=== PATIENT | female | born 1970 | race Caucasian/White ===

== ENCOUNTER 2019-11-24 05:49 | Day surgery (SDC) | payer BC, SELFPAY ==
[2019-11-23 07:22] VITALS: BMI 25.9
[2019-11-23 08:51] VITALS: BMI 26.0
[2019-11-24] MEDS: sodium chloride 0.9% 1,000 ML 30 ML IV (06:18)
--- NOTE | 2019-11-24 06:47 | ANES.PREANE2 ---
Pre-Anesthetic Assessment Pre-Anesthetic Assessment: Height/Weight: Height 1.55 m Weight 62.596 kg Preop Diagnosis: Family history of colon cancer Proposed Procedure: Operation Date: 11/24/19 07:35 Proposed Procedures p Colonoscopy 62361 Z80.0(Not Applicable) - Nino Gramajo MD Last intake: Intake Last Liquid Date 11/23/19 Last Liquid Time 10:45 Last Solid Date 11/22/19 Last Solid Time 11:00 Social: Social History: Tobacco and No alcohol Exam: Pre-Anes Outpt Exam: alert, oriented x 3, clear to auscultation bilaterally and regular rate & rhythm Airway: Submandibular: WNL Cervical ROM: WNL MP: 2 History/ROS: No significant history except as noted Metabolic: Metabolic: DM Anesthetic Plan: ASA status: 3 Anesthesia: Anesthesia Evaluation and MAC Risk of > 500 ml blood loss (7ml/kg in children): No Meds/Allergies Current Medications: Current Medications Generic Name Dose Route Start Last Admin Trade Name Freq PRN Reason Stop Dose Admin Sodium Chloride 1,000 mls @ 30 ml s/hr 11/24/19 06:00 11/24/19 06:18 Sodium Chloride 0.9% IV 30 mls/hr .Q24H ROBYN Administration PFSH Anesthesia PFSH: Social History Smoking and tobacco status: current every day smoker Alcohol intake: current Alcohol intake frequency: holidays/special occasions only History of recent travel: No Data Anesthesia Cardiac Studies: No Data to Display
--- NOTE | 2019-11-24 07:01 | W.PM.OPSFHP ---
Same Day Surgery H&P Indication for Procedure/HPI DATE OF PROCEDURE: November 24, 2019 CHIEF COMPLAINT/INDICATIONFOR SURGICAL PROCEDURE: Family history of colon cancer PREOP DIAGNOSIS: Family history of colon cancer PLANNED PROCEDRUE: Operation Date: 11/24/19 07:35 Proposed Procedures p Colonoscopy 27997 Z80.0(Not Applicable) - Nino Gramajo MD Medications/Allergies* Home Medications Medication Instructions Recorded Confirmed Type metformin 500 mg tablet 500 mg PO BID 10/22/19 11/23/19 History Allergies/Adverse Reactions Allergy/AdvReac Type Severity Reaction Status Date / Time codeine Allergy ALGY-Hives Verified 11/23/19 08:49 Current Medications: Generic Name Dose Route Start Last Admin Trade Name Freq PRN Reason Stop Dose Admin Sodium Chloride 1,000 mls @ 30 mls/hr 11/24/19 06:00 11/24/19 06:18 Sodium Chloride 0.9% IV 30 mls/hr .Q24H ROBYN Administration Pertinent History/Comorbid Conditions* Medical History (Updated 10/22/19 @ 11:47 by Nino Gramajo MD) Diabetes Umbilical hernia, incarcerated Surgical History (Updated 10/22/19 @ 11:02 by Nino Gramajo MD) History of cholecystectomy History of foot surgery Bilateral Family History (Updated 10/22/19 @ 10:57 by MARGARET Juárez) Cancer Mother Breast and Colonoscopy Denies family history of Anesthesia complication Bleeding disorder Social History Smoking and tobacco status: current every day smoker Alcohol intake: current Alcohol intake frequency: holidays/special occasions only History of recent travel: No Pertinent Exam Findings alert, oriented x 3 and regular rate & rhythm Recommendations Surgery/Procedure today Coding Level of Care Code Acute Membership Sales Representative for Dina Martinez
[2019-11-24 07:26] VITALS: BP 101/69; PULSE 85; RESP 18; TEMP 36.6; O2SAT 100
--- NOTE | 2019-11-24 07:35 | ANE.PACU2 ---
 Inpatient post-anesthesia follow up: Airway intact: Yes Vital signs: Temperature 97.8 F Pulse Rate 85 Respiratory Rate 18 Blood Pressure 101/69 Pulse Oximetry 100 Oxygen Delivery Me thod Nasal Cannula Oxygen Flow Rate 3 Fraction of Inspir ed Oxygen Hydration adequate: Yes Nausea and vomiting: No Mental status: Baseline
[2019-11-24 07:36] VITALS: BP 92/64; PULSE 91; RESP 18; O2SAT 96
[2019-11-24 07:54] VITALS: BP 128/77; PULSE 86; RESP 18; O2SAT 100
== END 2019-11-24 07:55 | disposition home or self-care (01) ==
PROVIDERS: Family Provider Nurse Practitioner; PCP Nurse Practitioner; Visit Provider Surgery
PROC: 0DJD8ZZ Inspection of Lower Intestinal Tract, Via Natural or Artificial Opening Endoscopic (ICD-10-PCS; CPT 45378; principal; 2019-11-24 07:30)
DX: K64.8 Other hemorrhoids (principal); Z80.0 Family history of malignant neoplasm of digestive organs; E11.9 Type 2 diabetes mellitus without complications; F17.210 Nicotine dependence, cigarettes, uncomplicated
CPT/HCPCS: 12345; 45378; J2001; J2704; J7030

== ENCOUNTER 2019-11-30 05:41 | Day surgery (SDC) | payer BC, SELFPAY ==
[2019-11-27 09:26] VITALS: BMI 26.0
[2019-11-30] VITALS (7 sets, daily range): BP systolic 113–152; BP diastolic 63–99; PULSE 74–95; RESP 16–18; TEMP 36.3–36.6; O2SAT 91–100
[2019-11-30 06:04] LABS: Glucose Point of Care 280 mg/dL (70-110)
[2019-11-30] MEDS: sodium chloride 0.9% 1,000 ML 30 ML IV (06:15)
--- NOTE | 2019-11-30 06:34 | ANES.PREANE2 ---
Pre-Anesthetic Assessment Pre-Anesthetic Assessment: Height/Weight: Height 1.55 m Weight 62.596 kg Temp Pulse Resp BP Pulse Ox 97.8 F 95 16 152/99 100 11/30/19 06:08 11/30/19 06:08 11/30/19 06:08 11/30/19 06:08 11/30/19 06:08 Preop Diagnosis: Family history of colon cancer Proposed Procedure: Operation Date: 11/30/19 07:05 Proposed Procedures p Umbilical Hernia Repair w/ Mesh 55835 K42.0(Not Applicable) - Nino Gramajo MD Familial anesthetic complications: None Was Beta Lesia taken within 24 hours: N/A Last intake: Intake Last Liquid Date 11/29/19 Last Liquid Time 22:30 Last Solid Date 11/29/19 Last Solid Time 18:00 Social: Social History: Tobacco Exam: Pre-Anes Outpt Exam: alert, oriented x 3, clear to auscultation bilaterally and regular rate & rhythm Airway: Cervical ROM: WNL Additional comments: missing Metabolic: Metabolic: DM Anesthetic Plan: ASA status: 2 Anesthesia: General Risk of > 500 ml blood loss (7ml/kg in children): No Meds/Allergies Current Medications: Current Medications Generic Name Dose Route Start Last Admin Trade Name Freq PRN Reason Stop Dose Admin Sodium Chloride 1,000 mls @ 30 ml s/hr 11/30/19 06:00 11/30/19 06:15 Sodium Chloride 0.9% IV 12/01/19 05:59 30 mls/hr .Q24H ROBYN Administration PFSH Anesthesia PFSH: Medical History Diabetes Umbilical hernia, incarcerated Surgical History (Updated 11/24/19 @ 07:26 by Nino Gramajo MD) History of cholecystectomy History of foot surgery Bilateral Status post colonoscopy (11/24/19) Social History Smoking and tobacco status: current every day smoker Alcohol intake: current Alcohol intake frequency: holidays/special occasions only History of recent travel: No Data Anesthesia Other Labs: Laboratory Results - last 48 hr 11/30/19 06:01 POC Glucose 280 Cardiac Studies: No Data to Display
--- NOTE | 2019-11-30 06:55 | W.PM.OPSFHP ---
Same Day Surgery H&P Indication for Procedure/HPI DATE OF PROCEDURE: November 30, 2019 CHIEF COMPLAINT/INDICATIONFOR SURGICAL PROCEDURE: umbilical hernia PREOP DIAGNOSIS: Family history of colon cancer PLANNED PROCEDRUE: Operation Date: 11/30/19 07:05 Proposed Procedures p Umbilical Hernia Repair w/ Mesh 69620 K42.0(Not Applicable) - Nino Gramajo MD Medications/Allergies* Home Medications Medication Instructions Recorded Confirmed Type metformin 500 mg tablet 500 mg PO BID 10/22/19 11/30/19 History Allergies/Adverse Reactions Allergy/AdvReac Type Severity Reaction Status Date / Time codeine Allergy ALGY-Hives Verified 11/30/19 06:06 Current Medications: Generic Name Dose Route Start Last Admin Trade Name Freq PRN Reason Stop Dose Admin Sodium Chloride 1,000 mls @ 30 mls/hr 11/30/19 06:00 11/30/19 06:15 Sodium Chloride 0.9% IV 12/01/19 05:59 30 mls/hr .Q24H ROBYN Administration Pertinent History/Comorbid Conditions* Medical History (Updated 10/22/19 @ 11:47 by Nino Gramajo MD) Diabetes Umbilical hernia, incarcerated Surgical History (Updated 11/24/19 @ 07:26 by Nino Gramajo MD) History of cholecystectomy History of foot surgery Bilateral Status post colonoscopy (11/24/19) Family History (Updated 10/22/19 @ 10:57 by MARGARET Juárez) Cancer Mother Breast and Colonoscopy Denies family history of Anesthesia complication Bleeding disorder Social History Smoking and tobacco status: current every day smoker Alcohol intake: current Alcohol intake frequency: holidays/special occasions only History of recent travel: No Pertinent Exam Findings alert, oriented x 3, regular rate & rhythm and procedure specific exam findings Recommendations Surgery/Procedure today Coding Level of Care Code Acute Commission Auditor for Dina Martinez
[2019-11-30] MEDS: HYDROcodone-acetaminophen 5-325 mg Tablet 1 TAB PO (08:17)
--- NOTE | 2019-11-30 08:23 | PM.OP ---
Operative Report Date of procedure: November 30, 2019 Pre-op Diagnosis: Incarcerated umbilical hernia Post-op Diagnosis: Incarcerated umbilical hernia containing omentum Procedure Done: Open primary repair of umbilical hernia measuring 1.5 cm Pathology: none sent Surgeon: Nino Gramajo Anesthesia: General Estimated blood loss (mL): 5 Condition: stable Disposition: PACU Procedure: The patient was taken to the operating room and intubated under general anesthesia after IV antibiotic had been administered. The abdomen was prepped and draped in a sterile manner. A 2 cm infraumbilical longitudinal incision was made using a 15 blade, a hernial sac dissected out using electrocautery and dissection with hemostats. The hernial sac was opened and omentum was reduced into the peritoneal cavity. Interrupted sutures using 0 Vicryl was used to close the hernial defect without any tension. The subcutaneous tissue was approximated using 3-0 Vicryl and skin was closed using running subcuticular 4-0 Monocryl sutures. Surgical glue was then applied and 20 mL of 0.5% Marcaine was infiltrated around the incision. A 2 x 2 gauze was then placed within the umbilicus and sterile dressings are applied. The patient was stable throughout the procedure.
== END 2019-11-30 08:55 | disposition home or self-care (01) ==
PROVIDERS: Family Provider Nurse Practitioner; PCP Nurse Practitioner; Visit Provider Surgery
PROC: (CPT 49587; principal; 2019-11-30 07:00)
DX: K42.0 Umbilical hernia with obstruction, without gangrene (principal); E11.9 Type 2 diabetes mellitus without complications; F17.210 Nicotine dependence, cigarettes, uncomplicated; Z79.84 Long term (current) use of oral hypoglycemic drugs
CPT/HCPCS: 49587; 12345; 36416; 82962; J0690; J2370; J2405; J2704; J2710; J3010; J3490; J7030

== ENCOUNTER 2024-03-26 09:18 | Outpatient (CLI) | payer OTHER, SELFPAY ==
--- NOTE | 2024-03-26 09:20 | MM_ITS ---
WS: [id number] SCREENING DIGITAL BREAST TOMOSYNTHESIS MAMMOGRAM WITH CAD HISTORY: Z12.39 - Encounter for other screening for malignant neop... COMPARISON: None available. Bilateral CC and MLO with tomosynthesis and synthetic mammography submitted. Computer aided detection analyzed. Breast composition: The breasts are heterogeneously dense, which may obscure small masses. No suspici ous calcification. There is a partially obscured mass in the LEFT subareolar region seen best on the CC projection. Mass is ovoid measuring 2.3 x 1.8 cm. This is near the 6:00 axis. This may contain fat suggesting that it is benign. There are no calcifications. MM/[place] [id number] IMPRESSION: BI-RADS: 0 - Incomplete: Need additional imaging evaluation FOLLOW UP: Need Additional Imaging Recommendation: LEFT breast subareolar evaluation to evaluate for possible mass which may contain fat suggesting that is benign.
== END 2024-03-26 09:19 | disposition home or self-care (01) ==
PROVIDERS: PCP Nurse Practitioner; Visit Provider Nurse Practitioner
DX: Z12.31 Encounter for screening mammogram for malignant neoplasm of breast (principal); R92.333 Mammographic heterogeneous density, bilateral breasts; N63.42 Unspecified lump in left breast, subareolar
CPT/HCPCS: 77063; 77067

== ENCOUNTER 2024-05-05 10:47 | Outpatient (CLI) | payer OTHER, SELFPAY ==
--- NOTE | 2024-05-05 10:52 | MM_ITS ---
WS: [id number] ADDITIONAL VIEWS LEFT MAMMOGRAM with tomosynthesis. LEFT BREAST ULTRASOUND HISTORY: ABNORMAL MAMMOGRAM COMPARISON: 03/26/2024 LEFT MAMMOGRAM: Spot compression views and true ML with tomosynthesis and sympathetic mammography. Partially obscured mass measuring 2.3 x 1.8 x 1.9 cm posterior to the LEFT nipple toward 6:00. Margin s are incompletely visualized due to dense fibroglandular tissue. No calcifications. No nipple retrac tion. LEFT BREAST ULTRASOUND 2-D and color Doppler imaging submitted. Oval mass with indistinct margins and mixed heterogeneous echogenicity is noted in the subareolar reg ion of the LEFT breast towards 6:00. Mass is similar to the adjacent breast tissue and is at least pa rtially encapsulated. Mass measures 2.0 x 2.6 x 1.5 cm. There does appear to be fat noted on both ult rasound and mammography. There are a few scattered cystic areas. MM/MM diag LT tomosynthesis [id number] IMPRESSION: BI-RADS: 3- Probably Benign FOLLOW UP: 6 Month Follow-up Recommend 6-month ultrasound follow-up only of the LEFT breast mass. Favor this is a benign hamartoma which does not need to be biopsied. As this mass has not been previously described are imaged short-term follow-up is recommended to en sure there is no enlargement.
== END 2024-05-05 10:48 | disposition home or self-care (01) ==
LOC: RAD 10:48
PROVIDERS: PCP Nurse Practitioner; Visit Provider Nurse Practitioner
DX: R92.8 Other abnormal and inconclusive findings on diagnostic imaging of breast (principal); N63.24 Unspecified lump in the left breast, lower inner quadrant
CPT/HCPCS: 76642; 77061; G0279

== ENCOUNTER → 2024-05-11 14:22 | Outpatient (BNVA) | payer OTHER, SELFPAY | PROVIDERS: PCP Nurse Practitioner; Visit Provider Nurse Practitioner | DX: E11.9 Type 2 diabetes mellitus without complications (principal) | CPT/HCPCS: 83036 ==

== ENCOUNTER → 2024-08-11 15:03 | Outpatient (BNVA) | payer OTHER, SELFPAY | PROVIDERS: PCP Nurse Practitioner; Visit Provider Nurse Practitioner | DX: E11.9 Type 2 diabetes mellitus without complications (principal) | CPT/HCPCS: 83036 ==

== ENCOUNTER 2024-11-03 06:55 | Outpatient (CLI) | payer OTHER, SELFPAY ==
--- NOTE | 2024-11-03 07:45 | US_ITS ---
WS: [id number] ULTRASOUND LEFT BREAST HISTORY: 6-month follow-up LEFT breast mass. COMPARISON: 05/05/2024 and 03/26/2024 TECHNIQUE: 2-D and Doppler. Reidentified is the fat-containing LEFT breast retroareolar mass which is encapsulated measuring 2.0 x 2.1 x 1.1 cm. No increased vascularity. No shadowing. This is most consistent with a benign hamartoma. US/US breast LT limited* [id number] IMPRESSION: BI-RADS: 3- Probably Benign FOLLOW-UP: 6 Month Follow-up Recommend 6-month diagnostic mammogram follow-up and possible ultrasound. That will be the time of bilateral screening mammography.
== END 2024-11-03 06:56 | disposition home or self-care (01) ==
PROVIDERS: PCP Nurse Practitioner; Visit Provider Nurse Practitioner
DX: R92.8 Other abnormal and inconclusive findings on diagnostic imaging of breast (principal); N63.20 Unspecified lump in the left breast, unspecified quadrant
CPT/HCPCS: 76642

== ENCOUNTER → 2024-11-18 14:26 | Outpatient (BNVA) | payer OTHER, SELFPAY | PROVIDERS: PCP Nurse Practitioner; Visit Provider Nurse Practitioner | DX: E11.9 Type 2 diabetes mellitus without complications (principal); I10 Essential (primary) hypertension; E78.5 Hyperlipidemia, unspecified | CPT/HCPCS: 80053; 80061; 83036 ==

== ENCOUNTER → 2025-02-02 13:50 | Outpatient (BNVA) | payer OTHER, SELFPAY | PROVIDERS: PCP Nurse Practitioner; Visit Provider Nurse Practitioner | DX: E11.9 Type 2 diabetes mellitus without complications (principal) | CPT/HCPCS: 80053; 80061; 83036; 85025 ==

== ENCOUNTER 2025-05-04 12:56 | Outpatient (CLI) | payer OTHER, SELFPAY ==
--- NOTE | 2025-05-04 13:03 | MM_ITS ---
WS: [id number] DIAGNOSTIC BILATERAL DIGITAL BREAST TOMOSYNTHESIS MAMMOGRAPHY WITH CAD LEFT breast ultrasound, limited HISTORY: Follow-up retroareolar LEFT breast mass. COMPARISON: 05/05/2024, 03/26/2024 TECHNIQUE: Bilateral craniocaudad, mediolateral oblique, and mediolateral views are submitted with tomosynthesis and SM. Spot compression LEFT CC. Computer aided detection utilized. Breast composition: There are scattered areas of fibroglandular density. Reidentified is the encapsulated mass containing fat LEFT retroareolar region measures 1.8 x 2.4 cm. This is most likely a hamartoma. Additional benign calcifications in each breast. LEFT breast ultrasound, limited. Partially encapsulated mass containing fat LEFT retroareolar region is reidentified measuring 1.6 x 1.6 x 0.8 cm. Very similar in appearance to the prior study and most consistent with hamartoma. MM/MM diag BI tomosynthesis [id number] IMPRESSION: BI-RADS: 2 - Benign. FOLLOW UP: 1 Year Follow-up Recommend annual screening mammography.
== END 2025-05-04 12:57 | disposition home or self-care (01) ==
LOC: RAD 12:58
PROVIDERS: PCP Nurse Practitioner; Visit Provider Nurse Practitioner
DX: R92.8 Other abnormal and inconclusive findings on diagnostic imaging of breast (principal); R92.323 Mammographic fibroglandular density, bilateral breasts; N63.42 Unspecified lump in left breast, subareolar; R92.1 Mammographic calcification found on diagnostic imaging of breast
CPT/HCPCS: 76642; 77062; G0279

== ENCOUNTER → 2025-06-24 14:21 | Outpatient (BNVA) | payer OTHER, SELFPAY | PROVIDERS: PCP Nurse Practitioner; Visit Provider Nurse Practitioner | DX: E11.9 Type 2 diabetes mellitus without complications (principal) | CPT/HCPCS: 80048; 83036 ==